=== PATIENT | female | born 1955 | race Caucasian/White ===

== ENCOUNTER → 2017-09-27 | Outpatient (CLI) | payer MEDICAID | LOC: FIMAGING 08:00 | PROVIDERS: ATTEND Family Medicine | DX: Z12.31 Encounter for screening mammogram for malignant neoplasm of breast (principal) | CPT/HCPCS: G0202 ==

== ENCOUNTER → 2018-10-03 | Outpatient (CLI) | payer MEDICAID | LOC: FIMAGING 13:22 | PROVIDERS: ATTEND Family Medicine | DX: Z12.31 Encounter for screening mammogram for malignant neoplasm of breast (principal) ==